=== PATIENT | male | born 1965 | race Caucasian/White ===

== ENCOUNTER 2021-11-08 11:30 | Emergency (ER) | payer BC, OTHER ==
[2021-11-08] MEDS ORDERED: Levofloxacin 500 MG Tab PO ONE (11:31)
[2021-11-08 12:26] LABS: CORONAVIRUS COVID-19 NAA NEGATIVE (NEGATIVE)
[2021-11-08] MEDS ORDERED: Sodium Chloride 0.9% 10 ML Syringe FLUSH PRN (14:08)
[2021-11-08] MEDS ORDERED: Sodium Chloride 0.9% 1,000 ML IV ONE (14:25)
[2021-11-08] MEDS ORDERED: HYDROmorphone 0.5 MG/0.5 ML Syringe IVPUSH ONE (14:25)
[2021-11-08] MEDS ORDERED: Ondansetron 4 MG/2 ML SDV IVPUSH ONE (14:26)
[2021-11-08 15:09] LABS: ANION GAP 11.6 mEq/L (7-13)
[2021-11-08] MEDS ORDERED: Iopamidol 612 MG/ML 100 ML Bottle IVPUSH ONE (15:14)
[2021-11-08] MEDS ORDERED: cefTRIAXone 2 GM in Sodium Chloride 0.9% 100 ML IV ONE (16:41)
[2021-11-08] MEDS ORDERED: Ketorolac 30 MG/ML SDV IVPUSH ONE (16:42)
[2021-11-08] MEDS ORDERED: Levofloxacin 500 MG Tab ONE ×2 (17:01→17:05)
== END 2021-11-08 17:15 | disposition home or self-care (01) ==
LOC: DL.ED 11:30
DX: N12 Tubulo-interstitial nephritis, not specified as acute or chronic (principal); K21.9 Gastro-esophageal reflux disease without esophagitis; N40.0 Benign prostatic hyperplasia without lower urinary tract symptoms; E66.9 Obesity, unspecified; Z68.38 Body mass index [BMI] 38.0-38.9, adult; Z79.899 Other long term (current) drug therapy; Z88.0 Allergy status to penicillin; Z20.822 Contact with and (suspected) exposure to COVID-19
CPT/HCPCS: 0240U; 36415; 74177; 80053; 81001; 83605; 83690; 84145; 85025; 86140; 87040; 87077; 87186; 96361; 96365; 96375; 99284; A9270; J0696; J1170; J1885; J2405; J3490; J7030; Q9967